=== PATIENT | female | born 1965 | race Caucasian/White ===

== ENCOUNTER 2016-05-23 15:11 | Emergency (ER) | payer BC, OTHER ==
[2016-05-23] MEDS ORDERED: SODIUM CHLORIDE 0.9% 500 ML IV STA (15:38)
[2016-05-23] MEDS ORDERED: LORazepam 2 MG/ML SYRINGE IV STA (15:39)
--- NOTE | 2016-05-23 15:45 | ED ---
General Adult HPI - General Chief complaint: Anxiety Stated complaint: anxiety attack Time Seen by Provider: 05/23/16 15:25 Source: patient, family, RN notes reviewed Mode of arrival: ambulatory Limitations: no limitations - History of Present Illness Initial comments: 50-year-old female presenting for possible medication reaction. Patient states that she was recently started on atenolol/chlorthalidone combination medication for hypertension and 05/09/2016. States since this time she's had a persistent feeling of cough as well as intermittent sensations of lip and throat swelling as well as swelling around her eyes. She states that she was reading the inserts on the medication and she had concerning symptoms for reaction to the medication. States she also has a history of anxiety and feels like she is having a full-blown panic attack right now. She did states that she took 1 of her Klonopin's prior to coming to the ED. She states that she is still feeling anxious at this time. She denies any active chest pain or shortness of breath. But she is worried that she is having a Heart attack as the insert in the medication and stated that if she abruptly stopped the medication she could have a heart attack. She denies any significant cardiac history. She denies any nausea or vomiting. She denies any fevers or chills. - Related Data Home Medications Medication Instructions Recorded Confirmed clonazePAM [Clonazepam] 0.5 mg PO BID PRN 03/29/14 05/23/16 Naproxen [Naprosyn] 500 mg PO Q12HR PRN 04/13/14 05/23/16 diphenhydrAMINE [Benadryl] 25 - 50 mg PO HS PRN 04/13/14 05/23/16 oxyCODONE HCL/ACETAMINOPHEN 1 tab PO TID PRN 04/30/15 05/23/16 [Endocet 10-325 mg] Baclofen [Lioresal] 20 mg PO BID PRN 05/23/16 05/23/16 Buprenorphine [Butrans 20 MCG/HOUR] 1 patch TRANSDERM FR 05/23/16 05/23/16 Allergies Allergy/AdvReac Type Severity Reaction Status Date / Time Latex, Natural Rubber AdvReac Unknown Itching Verified 05/23/16 15:48 Penicillins AdvReac Unknown HEADACHE Verified 05/23/16 15:48 enviromental AdvReac Mild HAYFEVER Uncoded 11/08/15 09:38 SYMPTOMS Review of Systems ROS Statement: Those systems with pertinent positive or pertinent negative responses have been documented in the HPI. ROS Other: All systems not noted in ROS Statement are negative. Past Medical History Past Medical History: GERD/Reflux, Musculoskeletal Disorder, Osteoarthritis (OA) Additional Past Medical History / Comment(s): Hx. of FREQUENT BLADDER INFECTIONS , BACK PAIN. Degenerative disc disorder. History of Any Multi-Drug Resistant Organisms: None Reported Past Surgical History: Back Surgery, Section, Orthopedic Surgery Additional Past Surgical History / Comment(s): 1/2 THYROID REMOVED FOR BENIGN CYST. ARTHROSCOPY LT KNEE, LAMINECTOMY, BACK SURGERY WITH RODS, SPINAL CORD STIMULATOR X 3, PAIN CLINIC INJECTIONS, Colonoscopy. Past Anesthesia/Blood Transfusion Reactions: No Reported Reaction Past Psychological History: Anxiety, Depression, Panic Disorder Smoking Status: Former smoker Past Alcohol Use History: None Reported Additional Past Alcohol Use History / Comment(s): Smoked 1/2 PPD x3 yrs. Quit smoking in 1994. Past Drug Use History: None Reported - Past Family History Mother Family Medical History: Cancer Additional Family Medical History / Comment(s): LUNG Sister(s) Family Medical History: Cancer Additional Family Medical History / Comment(s): LUNG General Exam - General Exam Comments Initial Comments: General: Awake and Alert. No acute distress. Does not appear acutely ill. Eyes: TANVIR, EOM intact. No nystagmus. No scleral icterus. HENT: Atraumatic, normocephalic. Mucous membranes moist. Trachea midline. Neck: The neck is supple, there is no tenderness or JVD. Cardiovascular: Regular rate and rhythm. No murmur, rub, or gallop is appreciated. Distal pulses intact. Respiratory: Lungs are clear to auscultation bilaterally. No wheezes, rales, rhonchi. No respiratory distress. Gastrointestinal: Soft, Nontender. No rebound or guarding. Non-distended. No masses or organomegaly noted. No CVA tenderness. Musculoskeletal: No tenderness. Normal ROM. No gross deformity. No strength deficits. Neurological: A&Ox3. CN II-XII grossly intact, There are no obvious motor or sensory deficits. Coordination appears grossly intact. Speech is normal. Skin: Skin is warm and dry and no rashes or lesions are noted. Psychiatric: Cooperative, appropriate mood & affect, normal judgment. She appears anxious. Limitations: no limitations Course Vital Signs 05/23/16 05/23/16 15:14 17:00 Temperature 98.0 F 97.8 F Pulse Rate 87 71 Respiratory 20 18 Rate Blood Pressure 114/75 108/61 O2 Sat by Pulse 97 96 Oximetry EKG Findings - EKG Comments: EKG Findings:: EKG 15:59. Normal sinus rhythm. Rate 70. MN 168. QRS 128. QT /QTc 42/434. Normal axis. LVH. No STEMI. Normal EKG. Medical Decision Making - Medical Decision Making 50-year-old female presenting for evaluation of possible medication reaction. Patient does not have any evidence of anaphylaxis or severe ALLERGIC reaction on physical exam at this time. She does state she is feeling very anxious, history of anxiety. Discussed discontinuation of her hypertension medication. Her vitals are stable at this time. She is not currently hypertensive. Patient states that she did call her doctor's office earlier today and is planning to get in for follow-up appointment early next week. Discussed that she is safe to stop her Atenolol/Chlorthalidone medication at this time. Discussed continuing her other medications. Patient was given IV fluids and Ativan for her anxiety. Basic blood work was done and grossly unremarkable other than mild hypokalemia which was replaced. Pt reevaluated and feeling improved. Discussed taking Benadryl if pt feels any return of symptoms. Patient is stable for discharge home at this time. Discussed concerning signs symptoms for immediate return to the ED. Patient and family are are agreeable with plan and discharge home. - Lab Data Result diagrams: 05/23/16 16:00 05/23/16 16:00 Lab Results 05/23/16 05/23/16 Range/Units 16:00 16:00 WBC 5.7 (3.8-10.6) k/uL RBC 4.88 (3.80-5.40) m/uL Hgb 12.5 (11.4-16.0) gm/dL Hct 38.2 (34.0-46.0) % MCV 78.3 L (80.0-100.0) fL MCH 25.5 (25.0-35.0) pg MCHC 32.6 (31.0-37.0) g/dL RDW 13.5 (11.5-15.5) % Plt Count 344 (150-450) k/uL Neutrophils % 69 % Lymphocytes % 20 % Monocytes % 6 % Eosinophils % 1 % Basophils % 1 % Neutrophils # 3.9 (1.3-7.7) k/uL Lymphocytes # 1.2 (1.0-4.8) k/uL Monocytes # 0.3 (0-1.0) k/uL Eosinophils # 0.1 (0-0.7) k/uL Basophils # 0.0 (0-0.2) k/uL Sodium 135 L (137-145) mmol/L Potassium 3.4 L (3.5-5.1) mmol/L Chloride 93 L (98-107) mmol/L Carbon Dioxide 29 (22-30) mmol/L Anion Gap 13 mmol/L BUN 13 (7-17) mg/dL Creatinine 0.96 (0.52-1.04) mg/dL Est GFR (MDRD) Af Amer >60 (>60 ml/min/1.73 sqM) Est GFR (MDRD) Non-Af >60 (>60 ml/min/1.73 sqM) Glucose 123 H (74-99) mg/dL Calcium 9.6 (8.4-10.2) mg/dL Disposition Clinical Impression: Medication reaction, Anxiety Disposition: HOME SELF-CARE Instructions: Generalized Anxiety Disorder (ED), Adverse Drug Reaction (ED) Additional Instructions: Please stop your Atenolol/Chlorthalidone medication. Please follow up with your regular doctor next week to discuss management of your blood pressure. Referrals: Deni Miranda DO [Primary Care Provider] - 1-2 days Time of Disposition: 17:07
[2016-05-23 16:23] LABS: Basophils % (A) 1 %; CH 25.6; CHCM 32.8; Eosinophils # (A) 0.1 k/uL (0-0.7); Eosinophils % (A) 1 %; HCT 38.2 % (34.0-46.0); HDW 2.75; HGB 12.5 gm/dL (11.4-16.0); Luc # (Auto) 0.17; Luc % (Auto) 3; Lymphocytes # (A) 1.2 k/uL (1.0-4.8); Lymphocytes % (A) 20 %; MCH 25.5 pg (25.0-35.0); MCHC 32.6 g/dL (31.0-37.0); MCV 78.3 fL (80.0-100.0); Mean Platelet Volume 6.9; Monocytes # (A) 0.3 k/uL (0-1.0); Monocytes % (A) 6 %; Neutrophils # (A) 3.9 k/uL (1.3-7.7); Neutrophils % (A) 69 %; RBC 4.88 m/uL (3.80-5.40); RDW 13.5 % (11.5-15.5); WBC 5.7 k/uL (3.8-10.6); WBC (Perox) 5.95
[2016-05-23 16:33] LABS: Anion Gap 13 mmol/L; Blood Urea Nitrogen 13 mg/dL (7-17); Calcium 9.6 mg/dL (8.4-10.2); Carbon Dioxide 29 mmol/L (22-30); Chloride 93 mmol/L (98-107); Glucose 123 mg/dL (74-99); Non-African American GFR(MDRD) >60 (>60 ml/min/1.73 sqM); Sodium 135 mmol/L (137-145)
[2016-05-23 16:34] LABS: Potassium 3.4 mmol/L (3.5-5.1)
[2016-05-23] MEDS ORDERED: POTASSIUM CHLORIDE ER 20 MEQ TAB.ER PO STA (16:56)
[2016-05-23 17:04] VITALS: BP 108/61; PULSE 71; RESP 18; TEMP 97.8
== END 2016-05-23 17:16 | disposition home or self-care (01) ==
LOC: EC 15:11
DX: T44.7X5A Adverse effect of beta-adrenoreceptor antagonists, initial encounter (principal); F41.9 Anxiety disorder, unspecified; E87.6 Hypokalemia; T78.49XA Other allergy, initial encounter; Z88.0 Allergy status to penicillin; Z87.891 Personal history of nicotine dependence; Z91.040 Latex allergy status; Z79.899 Other long term (current) drug therapy
CPT/HCPCS: 36415; 93005; 80048; 85025; 99283; 96374; 96361; J2060

== ENCOUNTER → 2016-06-10 | Outpatient (CLI) | payer BC ==
[2016-06-10 15:22] VITALS: BP 147/80; PULSE 106; RESP 18; TEMP 97.5
--- NOTE | 2016-06-11 08:42 | P.CONS ---
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 and she had also cervical radiculopathy , currently she is complaining of increase of her neck pain and numbness in the upper extremity, previously we have done cervical epidural steroid injection with excellent pain relief, and the last cervical epidural steroid injection done in October 2015, and she had good pain relief, patient was taking Butran 15 every week and, naproxen 500 mg every 12 hours, and baclofen 20 mg twice a day and Percocet 10/325 every 8 hours, patient reported that over the last several weeks she started having severe hives in her body every time she started a new Butrans patch, for this reason she stopped taking Butrans, for this reason her pain is increased, she denies any bowel or urinary incontinence , denies any fever or night sweats she denies any motor or sensory deficits Past Medical History Past Medical History: GERD/Reflux, Musculoskeletal Disorder, Osteoarthritis (OA) Additional Past Medical History / Comment(s): Hx. of FREQUENT BLADDER INFECTIONS , BACK PAIN. Degenerative disc disorder. History of Any Multi-Drug Resistant Organisms: None Reported Past Surgical History: Back Surgery, Section, Orthopedic Surgery Additional Past Surgical History / Comment(s): 1/2 THYROID REMOVED FOR BENIGN CYST. ARTHROSCOPY LT KNEE, LAMINECTOMY, BACK SURGERY WITH RODS, SPINAL CORD STIMULATOR X 3, PAIN CLINIC INJECTIONS, Colonoscopy. Past Anesthesia/Blood Transfusion Reactions: No Reported Reaction Past Psychological History: Anxiety, Depression, Panic Disorder Smoking Status: Former smoker Past Alcohol Use History: None Reported Additional Past Alcohol Use History / Comment(s): Smoked 1/2 PPD x3 yrs. Quit smoking in 1994. Past Drug Use History: None Reported - Past Family History Mother Family Medical History: Cancer Additional Family Medical History / Comment(s): LUNG Sister(s) Family Medical History: Cancer Additional Family Medical History / Comment(s): LUNG Medications and Allergies Home Medications Medication Instructions Recorded Confirmed Type clonazePAM [Clonazepam] 0.5 mg PO BID PRN 03/29/14 06/10/16 History Naproxen [Naprosyn] 500 mg PO Q12HR PRN 04/13/14 06/10/16 History diphenhydrAMINE [Benadryl] 25 - 50 mg PO HS PRN 04/13/14 06/10/16 History Baclofen [Lioresal] 20 mg PO BID PRN 05/23/16 06/10/16 History Buprenorphine [Butrans 20 MCG/HOUR] 1 patch TRANSDERM FR 05/23/16 06/10/16 History Cranberry Extract [Cranberry] 4,000 units PO BID 06/10/16 06/10/16 History Echinacea 3 tab PO DAILY 06/10/16 06/10/16 History Gabapentin [Neurontin] 100 mg PO TID 06/10/16 06/10/16 History Melatonin 1 tab PO HS PRN 06/10/16 06/10/16 History busPIRone HCl [Buspar] 1 tab PO BID 06/10/16 06/10/16 History Allergies Allergy/AdvReac Type Severity Reaction Status Date / Time Latex, Natural Rubber AdvReac Unknown Itching Verified 06/10/16 15:06 Penicillins AdvReac Unknown HEADACHE Verified 06/10/16 15:06 enviromental AdvReac Mild HAYFEVER Uncoded 06/10/16 15:06 SYMPTOMS Physical Exam Vitals: Vital Signs Temp Pulse Resp BP Pulse Ox 06/10/16 15:15 97.5 F L 106 H 18 147/80 99 Intake and Output 06/10/16 06/11/16 06/11/16 22:59 06:59 14:59 Other: Weight 83.007 kg Physical Examinations : 1-Constitutiona : Cooperative , not in acute distress . 2-HEENT : nech ; supple , no Lymphadenopathy , no Thyromegaly , normal thyroid size . eyes : no ptosis , no icterus, no photophobia . ENT : normal of hearing , normal oropharynx , no Thrush . 3- Respiratory : Chest clear to auscultations Bilaterally , no wheezing , no Rhonchi . 4- Cardiovascular : regular rate and rhythem , S1 , S2 , no S3 , no S4. 5- Gastrointestinal : abdomen soft no tenderness , bowel sounds positive all four quadrents , no organomegally . 6- Genitourinary : Defferred . 7- neurologic : Cranial nerve II to XII intact , no focal neurological deffecit . 8-psychatric : alert , oriented X 3 , appropriate affect , intact judgment and insight . 9-Lymphatic : no Lymphadenopathy . 10- musculoskeltal : exams of the cervical spine = normal motor stregnth in the deltoid and biceps, normal motor stregnth biceps and the wrist extensors (C6) normal motor stregnth in the triceps muscle . deep tendon reflexes normal at the biceps , , normal at triceps. positive cervical facet loading test . Decreased sensation in the medial aspect of the upper extremity mainly on the left side exams of the Lumber spine = normal moter stegnth lower extremities ,thigh and legs .5/5 deep tendon reflexes : normal Knee Jerk , normal ankle Jerk . positive lumber facet Loading Test strait leg raising test positive at 30 degree , RT ,LT , Fabere test positive RT and positive LT . Sever tenderness over the Sacroiliac joint on the Right , and Left side Assessment and Plan Plan: Assessment and plan = - Chronic low back pain secondary to lumbar degenerative disc disease , lumbar spondylosis with facet arthropathy without myelopathy , failed back surgery syndrome lumbar a -Cervical radiculopathy. Cervical spondylosis recommend = scheduled patient to have repeat cervical epidural steroid injection under fluoroscopy guidance, Discontinue butrans , start patient on Neurontin 100 mg every 8 hours. I'm recommend to increase the Percocet 10/325 every 6 hours (120 per months instead of 90 ) Time with Patient: Less than 30
--- NOTE | 2016-06-18 09:53 | P.PN ---
Progress Note - Text This is an addendum to the note dictated on 06/10/2016, patient had cervical epidural steroid injection x2 , the first cervical epidural was done in 2015 and she got 80% of pain relief, and also patient has second cervical epidural steroid injection done 11/08/2015 and she got 100% pain relief, and she is currently having pain ,she describes her pain as visual analog scale is 7 /10, patient continue conservative treatment ,with home exercise ,and medication , and the current conservative treatment is not helping enough, and she continued to, have pain in her neck and upper extremities, the pain interfering with her activity of daily livings
== END | disposition home or self-care (01) ==
LOC: PNWHC3 13:57
PROVIDERS: ATTEND Specialist
DX: M51.36 Other intervertebral disc degeneration, lumbar region (principal); M47.816 Spondylosis without myelopathy or radiculopathy, lumbar region; M47.22 Other spondylosis with radiculopathy, cervical region; M46.86 Other specified inflammatory spondylopathies, lumbar region; F32.9 Major depressive disorder, single episode, unspecified; F41.9 Anxiety disorder, unspecified; Z87.891 Personal history of nicotine dependence; Z79.899 Other long term (current) drug therapy; Z91.040 Latex allergy status; Z88.0 Allergy status to penicillin
CPT/HCPCS: 99211

== ENCOUNTER 2016-07-15 03:09 | Observation (INO) | payer BC ==
[2016-07-15] MEDS ORDERED: NITROGLYCERIN SL TABS 0.4 MG TAB SUBLINGUAL ONE (03:48)
[2016-07-15] MEDS ORDERED: ASPIRIN 81 MG CHEW ONE (03:48)
[2016-07-15] MEDS ORDERED: HEPARIN SODIUM,PORCINE 5,000 UNIT/ML 1 ML VIAL IV PRN (07:09)
[2016-07-15] MEDS ORDERED: HEPARIN SODIUM,PORCINE 5,000 UNIT/ML 1 ML VIAL IV ONE (07:09)
[2016-07-15] MEDS ORDERED: HEPARIN SODIUM,PORCINE/D5W PMX 25,000 UNIT in DEXTROSE/WATER 1 500ML.BAG IV SCH (07:15)
[2016-07-15 07:26] LABS: Basophils # (A) 0.1 k/uL (0-0.2); Basophils % (A) 1 %; CH 25.7; CHCM 31.8; Eosinophils # (A) 0.1 k/uL (0-0.7); Eosinophils % (A) 1 %; HCT 39.7 % (34.0-46.0); HDW 2.54; HGB 12.6 gm/dL (11.4-16.0); Luc # (Auto) 0.15; Luc % (Auto) 3; Lymphocytes # (A) 1.8 k/uL (1.0-4.8); Lymphocytes % (A) 34 %; MCH 25.8 pg (25.0-35.0); MCHC 31.8 g/dL (31.0-37.0); MCV 81.3 fL (80.0-100.0); Monocytes # (A) 0.3 k/uL (0-1.0); Monocytes % (A) 6 %; Neutrophils # (A) 2.8 k/uL (1.3-7.7); Neutrophils % (A) 54 %; RBC 4.89 m/uL (3.80-5.40); RDW 14.1 % (11.5-15.5); WBC 5.2 k/uL (3.8-10.6); WBC (Perox) 5.31
[2016-07-15 07:30] LABS: Partial Thromboplastin Time 23.1 sec (22.0-30.0); Prothrombin Time 10.2 sec (9.0-12.0)
[2016-07-15 07:32] LABS: ALT 29 U/L (9-52); AST 17 U/L (14-36); Alkaline Phosphatase 86 U/L (38-126); Anion Gap 11 mmol/L; Blood Urea Nitrogen 12 mg/dL (7-17); Carbon Dioxide 24 mmol/L (22-30); Chloride 103 mmol/L (98-107); Creatine Kinase 37 U/L (30-135); Creatine Kinase MB 0.3 ng/mL (0.0-2.4); Glucose 95 mg/dL (74-99); Non-African American GFR(MDRD) >60 (>60 ml/min/1.73 sqM); Potassium 4.1 mmol/L (3.5-5.1); Sodium 138 mmol/L (137-145); Total Bilirubin 0.4 mg/dL (0.2-1.3); Total Protein 7.9 g/dL (6.3-8.2); Troponin I <0.012 ng/mL (0.000-0.034)
--- NOTE | 2016-07-15 08:04 | XR ---
EXAMINATION TYPE: XR chest 2V DATE OF EXAM: 07/15/2016 7:45 AM COMPARISON: NONE HISTORY: Shortness of breath TECHNIQUE: Frontal and lateral views of the chest are obtained. FINDINGS: Scattered senescent parenchymal changes noted. Hyperinflation compatible with COPD. No evidence for infiltrate. No evidence for atelectasis. Heart size is stable. Mediastinal structures are stable and grossly unremarkable. No evidence for hilar prominence. Degenerative changes dorsal spine. IMPRESSION: 1. No evidence for acute pulmonary disease.
[2016-07-15] MEDS: NITROGLYCERIN SL TABS 0.4 MG TAB SUBLINGUAL PRN ×2 (08:26→21:23)
[2016-07-15] MEDS ORDERED: FLUTICASONE 50MCG/SPRAY NASAL 16GM EA NOSTRIL PRN (10:19)
[2016-07-15 10:46] LABS: Creatine Kinase 33 U/L (30-135)
[2016-07-15 10:58] LABS: Creatine Kinase MB <0.2 ng/mL (0.0-2.4); Troponin I <0.012 ng/mL (0.000-0.034)
[2016-07-15] MEDS: busPIRone HCl 10 MG TAB PO SCH ×2 (11:06→19:49)
[2016-07-15] MEDS: clonazePAM 0.5 MG TAB PO PRN ×2 (11:06→21:21)
[2016-07-15] MEDS: oxyCODONE-APAP 10-325MG 1 EACH TAB PO PRN ×4 (11:06→23:36)
--- NOTE | 2016-07-15 14:16 | P.PN ---
Progress Note - Text Patient presenting with atypical chest discomfort normal cardiac enzymes was noted that her blood pressure has been high for the last 6 months Blood pressure goes up to 150s systolic and 90s diastolic Suggest Secondary hypertension workup, lipid panel, TSH Start losartan 50 mg by mouth daily thereafter Outpatient workup thereafter Full dictation
[2016-07-15] MEDS: BACLOFEN 10 MG TAB PO SCH ×3 (15:25→19:48)
[2016-07-15 15:28] VITALS: BMI 28.3
[2016-07-15] MEDS: LOSARTAN 50 MG TAB PO SCH (16:08)
[2016-07-15 16:22] VITALS: RESP 16
[2016-07-15 16:53] LABS: Cholesterol 195 mg/dL (<200); HDL Cholesterol 57 mg/dL (40-60); Triglycerides 146 mg/dL (<150)
[2016-07-15 17:26] LABS: Creatine Kinase 37 U/L (30-135)
[2016-07-15 17:39] LABS: Creatine Kinase MB <0.2 ng/mL (0.0-2.4); Troponin I <0.012 ng/mL (0.000-0.034)
--- NOTE | 2016-07-15 19:55 | CONS ---
DATE OF CONSULTATION: Rosy Mccormack has been experiencing elevated blood pressure for the last 6 months. She came in because her blood pressure was high once again and she had some discomfort in the chest. Her blood pressure goes up to the 150s systolic and diastolics reached up to over 90 plus. She did try medication, but she does not remember the name of the medication; but I am not sure why she is not on it now. She denies any history of diabetes. She denies any history of dyslipidemia. PAST MEDICAL HISTORY: 1. Osteoarthritis. 2. GERD. 3. Frequent bladder infections. SOCIAL HISTORY: She is a former smoker. She stopped almost 20 years back. No alcohol use. REVIEW OF SYSTEMS: No fever, chills, rigors. No cough or expectoration. No nausea, vomiting or diarrhea. No hematuria or dysuria, strokes or seizures. No skin lesions. No musculoskeletal complaints. ALLERGIES: 1. LATEX. 2. PENICILLIN. Medication list was reviewed and is documented in the chart. On examination, blood pressure is 152/78 mmHg, pulse rate about 100 beats per minute. Afebrile; 97.8 degrees Fahrenheit. Normal respirations. Head and neck examination is normal. Heart sounds are normal. Lungs are clear on auscultation. Extremities are warm. No edema. IMPRESSION: 1. Symptomatic hypertension. She has been hypertensive for the last 6 months. 2. Patient denies a history of diabetes. Glucose is normal. 3. Cardiac enzymes are completely normal. 4. Mild dyslipidemia with an LDL of 109 mg/dL. HDL is 57. Total cholesterol 195. Triglycerides 146. 5. Second( ) SS. PLAN: 1. Workup for secondary hypertension. 2. Start losartan 50 mg p.o. daily. 3. Observe on telemetry. 4. Her kidney functions are normal. Liver functions are normal. Her CBC is normal. I will follow her up in the office subsequently.
[2016-07-16 07:39] LABS: Basophils # (A) 0.1 k/uL (0-0.2); Basophils % (A) 1 %; CH 25.7; CHCM 31.7; Eosinophils # (A) 0.1 k/uL (0-0.7); Eosinophils % (A) 1 %; HCT 38.9 % (34.0-46.0); HDW 2.59; HGB 12.3 gm/dL (11.4-16.0); Hypochromasia Slight; Luc # (Auto) 0.16; Luc % (Auto) 3; Lymphocytes # (A) 1.8 k/uL (1.0-4.8); Lymphocytes % (A) 36 %; MCH 25.8 pg (25.0-35.0); MCHC 31.7 g/dL (31.0-37.0); MCV 81.5 fL (80.0-100.0); Mean Platelet Volume 7.1; Monocytes # (A) 0.4 k/uL (0-1.0); Monocytes % (A) 8 %; Neutrophils # (A) 2.5 k/uL (1.3-7.7); Neutrophils % (A) 50 %; RBC 4.77 m/uL (3.80-5.40); RDW 13.9 % (11.5-15.5); WBC 4.9 k/uL (3.8-10.6); WBC (Perox) 4.57
[2016-07-16] MEDS: BACLOFEN 10 MG TAB PO SCH ×2 (07:52→12:00)
[2016-07-16] MEDS: busPIRone HCl 10 MG TAB PO SCH (07:52)
[2016-07-16] MEDS: oxyCODONE-APAP 10-325MG 1 EACH TAB PO PRN ×2 (07:53→12:00)
[2016-07-16] MEDS: LOSARTAN 50 MG TAB PO SCH (07:53)
[2016-07-16] MEDS: clonazePAM 0.5 MG TAB PO PRN (07:58)
--- NOTE | 2016-07-16 08:19 | HP ---
DATE OF ADMISSION: Chief complaint is chest pain. HISTORY OF ILLNESS: Ms. Mccormack is a 50-year-old female with a known history of hypertension and chronic back and multiple spine surgeries, came to the hospital with complaints of chest pain, mainly midsternal region and radiated to the left arm when she was at rest and which made her to go into a panic attack and nauseated and came to the hospital for further evaluation. The patient denied any complaints of headache or dizziness or lightheadedness, diaphoresis. No history of coronary artery disease in the past the patient. Apparently, patient has been having uncontrolled blood pressure for the past 6 months. Patient is on multiple pain medications and patient was also on Suboxone in the past which was removed 7 weeks ago. Since then, she has been having panic attacks with withdrawal symptoms. Patient's initial blood pressure when she came to the hospital was 151/88, pulse is 85, respirations 18, temperature afebrile, pulse ox 97% on room air on admission. Patient says her blood pressure is running in the 180s when she was at home. Patient's lab work was within normal limits and otherwise, the patient was initially started on heparin and saline and troponins were ordered which have been negative and heparin has been discontinued now. REVIEW OF SYSTEMS: CONSTITUTIONAL: No fever. No chills. RESPIRATORY: No cough or sputum production. CARDIOVASCULAR: No chest pain. No short of breath. No leg swelling. ABDOMEN: Patient does have trace edema on legs. No nausea, vomiting, abdominal pain. No diarrhea. GENITOURINARY: Negative. ENDOCRINE: Negative. PSYCHIATRIC: Anxious. All other 14-point review of systems negative except as above. PAST MEDICAL HISTORY: Hypertension, chronic back pain with multiple spinal surgeries, and chronic pain, GERD, osteoarthritis, frequent bladder infections, cervical back pain, numbness, tinging left buttock and left leg, eczema, degenerative disc disease. PAST SURGICAL HISTORY: Spinal surgery, fusion laminectomy, disc surgery, thyroid cyst removed, cervical neck surgery. , orthopedic surgery, left knee arthroscopy, laminectomy, fusion surgery, back surgery with rods, spinal custom later x3. Pain Clinic cervical injections and colonoscopy. FAMILY HISTORY: Diabetes mellitus in her grandmother and father had a CVA and aneurysm. Allergies INCLUDE LATEX, NATURAL RUBBER and PENICILLINS. PSYCHOSOCIAL HISTORY: Anxiety, depression and panic disorder. SOCIAL HISTORY: Patient is a former smoker, 1/2 pack per day for 3 years, quit in 1994. Denied any alcohol use. Denied any drugs or IVDU. FAMILY HISTORY: Mother of lung cancer. Home medication include: 1. Clonazepam. 2. Baclofen. 3. BuSpar. 4. Percocet 10. 5. Fluticasone nasal spray. PHYSICAL EXAMINATION: A 50-year-old female, lying in bed comfortably, awake, alert, and oriented x3. Appears to be in no apparent distress. VITALS: Blood pressure is 152/78, pulse is 104, respiration 18, temperature afebrile, pulse ox 97% on room air. HEENT: Atraumatic, normocephalic. Neck is supple. No JVD. CVS EXAM: S1, S2 heard. No murmurs, no gallop, no rub. LUNGS: Bilateral air entry is present. No rhonchi, no crackles. Abdomen is soft, nontender. Bowel sounds are heard. 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 No focal deficit. EXTREMITIES: Trace edema, pulses palpable bilaterally. No clubbing or cyanosis. PSYCHIATRIC: Cooperative. LABORATORY DATA: WBC is 5.2, hemoglobin 12.6, platelets 362, INR 1.0. Sodium 138, potassium 4.1, chloride 103, bicarb is 24. BUN 12, creatinine 0.9. Calcium 10.0, liver enzymes are not elevated. Troponin x3 negative. Albumin 4.3, the LDL is 109. Chest x-ray, no evidence for acute pulmonary disease. IMPRESSION: 1. Atypical chest pain, ruled out acute coronary syndrome. Serial EKGs and troponins are negative. 2. Uncontrolled hypertension. 3. Possible opiate withdrawal versus secondary hypertension, work-up in progress. 4. Gastroesophageal reflux disease. 5. Osteoarthritis. 6. Frequent urinary tract infection. 7. Chronic back and cervical pain and numbness, tingling of left buttock and leg. 8. Eczema. 9. Anxiety, depression and panic disorder. DISCUSSION AND PLAN: Patient says that she has been having uncontrolled hypertension for the past 6 months and patient was on Suboxone patch, which has been removed about 7 weeks. Since then patient is having a frequent anxiety attacks. ( ) plus rule out secondary hypertension. TSH and plasma catecholamines, ( ) have been ordered. Cardiology is following the patient. Continue with the losartan at this time and continue the pain management and DVT prophylaxis and follow up closely. Further recommendations based on the clinical course. Anticipate discharge tomorrow if the blood pressure is stable and follow up work-up for secondary hypertension as an outpatient.
--- NOTE | 2016-07-16 10:30 | PN ---
Rosy is doing well. Her blood pressure is much better controlled now. She came in with hypertension and elevated blood pressure. Her LDL is 109, will consult this later. Recent labs for work-up for secondary hypertension, start her on losartan and blood pressure now is in the normal range. She is walking around, ambulating in the hallways. Blood pressure 127/74 mmHg with normal respirations, heart rate in the 80s, afebrile 97.8 degrees Fahrenheit. Heart sounds S1, S2 normal. Breath sounds are normal. No rhonchi. No crackles. No rub, no gallop. No JVD. No lower extremity edema. Tolerating losartan. IMPRESSION: 1. Hypertension recently started on losartan 50 mg p.o. daily and blood pressure is well-controlled. 2. LDL of 109. 3. Chest discomfort associated with hypertension. Patient is pain-free at this time. Cardiac enzymes have been normal. SUGGEST: Patient may go for a cardiac standpoint. Follow up with Dr. Thomas in about 2 to 3 weeks and she will get me home blood pressure readings and will follow up secondary hypertension labs.
[2016-07-16 13:30] VITALS: BP 134/77; PULSE 83; TEMP 97.9
--- NOTE | 2016-07-17 05:21 | DS ---
DATE OF ADMISSION: 07/15/2016 DATE OF DISCHARGE: 07/16/2016 The patient is a 50-year-old female who came in with chest pain, appears to be musculoskeletal. The patient does have reproducible chest pain. Patient has minimally elevated blood pressure and Cardiology believes it is secondary to blood pressure. Blood pressure is not high enough to cause chest pain. Anyways Cardiology is recommending 50 mg of losartan. I am going to go ahead and give her 50 mg of Losartan, but extensive counseling regarding appropriate measuring blood pressure at home was provided and patient will be discharged today. The patient was seen and examined on the day of discharge. Vitals are stable. PHYSICAL EXAMINATION: GENERAL: The patient is alert and oriented x3, not in any acute distress. Well developed, well nourished. HEENT: Pupils are round and equally reacting to light. EOMI. No scleral icterus. No conjunctival pallor. Normocephalic, atraumatic. No pharyngeal erythema. No thyromegaly. CARDIOVASCULAR: S1 and S2 present. No murmurs, rubs, or gallops. PULMONARY: Chest is clear to auscultation, no wheezing or crackles. ABDOMEN: Soft, nontender, nondistended, normoactive bowel sounds. No palpable organomegaly. MUSCULOSKELETAL: No joint swelling or deformity. EXTREMITIES: No cyanosis, clubbing, or pedal edema. NEUROLOGICAL: Gross neurological examination did not reveal any focal deficits. SKIN: No rashes. FINAL DIAGNOSES: 1. Chest pain, atypical, musculoskeletal in nature. 2. Possibility of essential hypertension, which I do not believe his uncontrolled. 3. Gastroesophageal reflux disease. 4. Osteoarthritis. 5. Chronic low back pain and chronic neck pain. 6. Anxiety disorder. Patient will be discharged today in stable medical condition to home. Activity as tolerated. Cardiac diet. Please refer to my depart summary for details of discharge medications. Patient will follow up with her primary care physician, Dr. Deni Miranda in about 3 to 7 days and patient will follow with Dr. Deion Thomas on as-needed basis.
== END 2016-07-16 16:30 | disposition home or self-care (01) ==
LOC: EC 03:09 → UNDOADMOB 05:26 → 3OBS 05:26 → EC 07-16 16:49 → EDSTATUS 07-16 16:49
PROVIDERS: ADMIT Hospitalist; ATTEND Hospitalist
DX: R07.89 Other chest pain (principal); I10 Essential (primary) hypertension; M19.90 Unspecified osteoarthritis, unspecified site; K21.9 Gastro-esophageal reflux disease without esophagitis; E78.5 Hyperlipidemia, unspecified; Z87.440 Personal history of urinary (tract) infections; L30.9 Dermatitis, unspecified; G89.29 Other chronic pain; R20.0 Anesthesia of skin; M54.5 Low back pain; F41.0 Panic disorder [episodic paroxysmal anxiety]; F32.9 Major depressive disorder, single episode, unspecified; M50.30 Other cervical disc degeneration, unspecified cervical region; Z98.1 Arthrodesis status; Z83.3 Family history of diabetes mellitus; Z82.3 Family history of stroke; Z87.891 Personal history of nicotine dependence; Z80.1 Family history of malignant neoplasm of trachea, bronchus and lung
CPT/HCPCS: 96365; 96366 ×3; 96376; 99285; 93005; 83835; 80053; 80061; 82533; 82088; 82550; 82553; 84244; 84484; 85025 ×2; 85610; 85730; 71020; G0378 ×2; J1644

== ENCOUNTER → 2017-01-08 | Outpatient (CLI) | payer BC ==
--- NOTE | 2017-01-08 16:40 | XR ---
Left knee HISTORY: Pain and swelling 3 views of the left knee No comparisons Bone mineralization, joint spaces and alignment are maintained. No sizable joint effusion. Question s oft tissue swelling. IMPRESSION: No significant bone abnormality evident
== END ==
LOC: RADXRYALE 16:04
PROVIDERS: ATTEND Family Medicine
DX: M25.562 Pain in left knee (principal)

== ENCOUNTER → 2017-06-02 | Outpatient (CLI) | payer BC ==
[2017-06-02 13:33] VITALS: BP 118/71; PULSE 99; RESP 18; TEMP 97.5
--- NOTE | 2017-06-02 20:41 | P.PN ---
Subjective Progress Note Date: 06/02/17 This is 51 years female with a chronic history of severe low back pain, diagnosed with postlaminectomy pain syndrome patient had spinal cord stimulator implanted several years ago, to help her low back pain and lower extremity pain, , she reported that the efficacy of the stimulation in her low back area and the lower extremity decreased over the last couple of months, also patient had severe neck pain with radiation to the upper extremities she is diagnosed with cervical radiculopathy, and also she is complaining of severe mid back pain, patient had cervical epidural steroid injection done in the past with good result, patient denies any fever or night sweats she denies any motor or sensory deficit and she denies any change in the bowel movement or urination, she is using Percocet 10/325 every 6 hours, and baclofen twice a day, she denies any side effect of the medication she denies any excessive drowsiness or sleepiness and she reports the current medication helping to control her pain, and she is getting prescription refills from her primary care Objective - Vital Signs Vital signs: Vital Signs Temp 97.5 F L 06/02/17 13:18 Pulse 99 06/02/17 13:18 Resp 18 06/02/17 13:18 BP 118/71 06/02/17 13:18 Pulse Ox Intake & Output 06/02/17 06/02/17 06/03/17 06:59 18:59 06:59 Weight 79.379 kg - Exam Physical Examinations : 1-Constitutiona : Cooperative , not in acute distress . 2-HEENT : nech ; supple , no Lymphadenopathy , normal thyroid size . eyes : no ptosis , no icterus, no photophobia . ENT : normal of hearing , normal oropharynx , no Thrush . 3- Respiratory : Chest clear to auscultations Bilaterally , no wheezing , no Rhonchi . 4- Cardiovascular : regular rate and rhythem , S1 , S2 , no S3 , no S4. 5- Gastrointestinal : abdomen soft no tenderness , bowel sounds positive all four quadrents , no organomegally . 6- Genitourinary : Defferred . 7- neurologic : Cranial nerve II to XII intact , no focal neurological deffecit . 8-psychatric : alert , oriented X 3 , appropriate affect , intact judgment and insight . 9-Lymphatic : no Lymphadenopathy . 10- musculoskeltal : cervical spine = motor stregnth in the deltoid and biceps, motor stregnth biceps and the wrist extensors (C6) . motor stregnth in the triceps muscle . deep tendon reflexes normal at the biceps , normal at Brachioradialis , normal at the Triceps positive cervical facet loading test . Examination of the thoracic area= multiple trigger point identified in the thoracic paravertebral muscles Lumber spine = normal moter stegnth lower extremities ,thigh and legs .5/5 deep tendon reflexes : normal Knee Jerk , normal ankle Jerk . lumber facet Loading Test positive strait leg raising test positive at 30 degree Right , positve at 30 degree Left Fabere test positive Right and positive Left Assessment and Plan Plan: Assessment and plan=1-low back pain secondary to postlaminectomy pain syndrome, patient had a spinal cord stimulator implanted several years ago, and recently patient reported that she lost the efficacy of the stimulation in the low back area, for persistent patient could benefit from the complex programming of the spinal Coursen later which can be done in the near future, to optimize the quality of the stimulation. 2-cervical radiculopathy, he should continue benefit from cervical epidural steroid injections. 3-myofascial pain syndrome thoracic area, she could benefit from trigger point injection thoracic area. Patient currently getting prescription refill of her pain medication Percocet/baclofen from her primary care, he denies any side effects of the medication Time with Patient: Less than 30
== END | disposition home or self-care (01) ==
LOC: PNWHC3 13:00
PROVIDERS: ATTEND Specialist
DX: G89.29 Other chronic pain (principal); M54.5 Low back pain; M54.12 Radiculopathy, cervical region; M96.1 Postlaminectomy syndrome, not elsewhere classified; M79.1 Myalgia; Z96.89 Presence of other specified functional implants; Z79.891 Long term (current) use of opiate analgesic
CPT/HCPCS: 99211

== ENCOUNTER → 2017-07-01 | Outpatient (CLI) | payer BC ==
[2017-07-01 13:20] VITALS: BP 130/84; PULSE 106; RESP 18; TEMP 98.1
--- NOTE | 2017-07-01 13:47 | P.PN ---
Subjective Progress Note Date: 07/01/17 Principal diagnosis: Cervical radiculopathy, cervical myofascial pain syndrome She is a 51-year-old woman with a long-standing history of multiple pain problems. She has had a long-standing history of neck pain as well which she reports is worsening and radiating into her shoulders as well as her arms. She is undergone cervical epidural steroid injections in the past and these have been helpful for her. She denies any bowel or bladder dysfunction. Objective - Vital Signs Vital signs: Vital Signs Temp 98.1 F 07/01/17 13:05 Pulse 106 H 07/01/17 13:05 Resp 18 07/01/17 13:05 BP 130/84 07/01/17 13:05 Pulse Ox Intake & Output 06/30/17 07/01/17 07/01/17 18:59 06:59 18:59 Weight 83.007 kg - Exam Gen: WDWN, AAOx3, NAD HEENT: NCAT, EOMI, hearing grossly normal Pulm: resp unlabored Abd: soft, NT, ND Neck: supple, trachea midline ROM in flexion cervical spine: Decreased ROM in extension cervical spine: Decreased Cervical paravertebral tenderness: Increased on the left side of the cervical spine. Cervical Facet tenderness: Positive cervical facet loading Spurling's: Negative Neuro: CN II-XII grossly intact, patient has decreased strength with flexion and extension of the arms. Decreased range of motion with shoulder abduction and adduction. Reflexes are diminished but symmetric bilaterally the upper extremities. - Constitutional General appearance: Present: obese - EENT Eyes: Present: normal appearance ENT: Present: hearing grossly normal Assessment and Plan (1) Cervical herniated disc Current Visit: No Status: Chronic Code(s): M50.20 - OTHER CERVICAL DISC DISPLACEMENT, UNSP CERVICAL REGION SNOMED Code(s): 121229958 (2) Cervical radiculopathy Narrative/Plan: We will schedule the patient for cervical medical steroid injection at the C7- T1 interspace as well as trigger point injections into the left trapezius muscle Current Visit: No Status: Chronic Code(s): M54.12 - RADICULOPATHY, CERVICAL REGION SNOMED Code(s): 39215713
== END | disposition home or self-care (01) ==
LOC: PNWHC3 12:53
PROVIDERS: ATTEND Pain Medicine Pain Medicine
DX: M50.13 Cervical disc disorder with radiculopathy, cervicothoracic region (principal)
CPT/HCPCS: 99211

== ENCOUNTER → 2017-08-13 | Outpatient (CLI) | payer BC ==
[2017-08-13 13:22] VITALS: BP 117/82; PULSE 100; RESP 16
--- NOTE | 2017-08-13 13:35 | P.PN ---
Progress Note - Text Progress Note Date: 08/13/17 Ms. Mccormack is a 51-year-old female who returns for follow up for chronic low back and neck pain. She has a spinal cord stimulator which was revised in 2014 in her lumbar spine. Patient presents with chief complaint of neck pain, and is had cervical epidural steroid injections in the past that provided her with excellent relief greater than 80% for 6-8 weeks per injection. Patient states that her current pain is an 8 out of 10 in severity, describes it as sharp throbbing aching. States that pain radiates to her upper extremity's bilaterally into her hands. States that the radicular pain decreases her overall activities of daily living, states she is unable to do work around the house, perform simple daily tasks, and unable to work. I discussed with patient performing a series of cervical epidural steroid injections in addition to physical therapy in order to in prove her activities of daily living. If patient does not improve overall with epidural steroid injections and physical therapy will consider surgical consultation. Patient is being prescribed medication by her primary care physician. Patient denies any flaccid paralysis , bowel or bladder dysfunction. Gen: WDWN, AAOx3, NAD HEENT: NCAT, EOMI, hearing grossly normal Pulm: resp unlabored Abd: soft, NT, ND Neck: supple, trachea midline ROM in flexion cervical spine: limited by pain ROM in extension cervical spine: limited by pain Cervical paravertebral tenderness: bilateral, worse on L side Cervical Facet tenderness: bilateral Spurling's: + L side Primitive test: Negative Peace's, negative myoclonus ROM in flexion lumbar spine: reduced ROM in extension lumbar spine: reduced Lumbar paravertebral tenderness: bilateral Facet loading: bilateral SI joint: tenderness L side, nontender R side Neil's: + L side Neuro: muscle strength lower extremities preserved Imaging: MRI of C-spine unavailable Impression: 1. cervical radiculopathy 2. Cervical spondylosis without myelopathy 3.. lumbar spondylosis 4.. lumbar postlaminectomy syndrome 5. Sacroiliitis Plan: 1. Medication: Patient will continue to get prescribed her medication from her primary care doctor. 2. Investigation: Maps reviewed appropriate with patient history 3. Intervention: will schedule patient for cervical epidural steroid injection considering patient had significant relief with previous to. Patient has noted decreased overall activities of daily living and overall function. Cervical epidurals in the past have helped improve her daily function.
== END | disposition home or self-care (01) ==
LOC: PNWHC3 12:45
PROVIDERS: ATTEND Anesthesiology
DX: G89.29 Other chronic pain (principal); M54.9 Dorsalgia, unspecified; M47.22 Other spondylosis with radiculopathy, cervical region; M96.1 Postlaminectomy syndrome, not elsewhere classified; M46.1 Sacroiliitis, not elsewhere classified; M47.816 Spondylosis without myelopathy or radiculopathy, lumbar region
CPT/HCPCS: 99211

== ENCOUNTER 2017-09-03 07:03 | Day surgery (SDC) | payer BC ==
[2017-08-31 09:45] VITALS: BMI 28.1
[2017-09-03] MEDS ORDERED: LACTATED RINGERS 1,000 ML IV SCH (07:15)
[2017-09-03 07:38] VITALS: RESP 16; TEMP 96.1
[2017-09-03] MEDS ORDERED: LIDOCAINE 1% 20 ML VIAL (10MG/ML) FOR IV START INTRADERMA ONE (07:43)
--- NOTE | 2017-09-03 08:35 | P.PCN ---
Date of Procedure: 09/03/17 Surgeon: Bijan Sutton Description of Procedure: PREOPERATIVE DIAGNOSIS: Cervical radiculopathy Cervical degenerative disc disease POSTOPERATIVE DIAGNOSIS: Cervical radiculopathy Cervical degenerative disc disease PROCEDURE Cervical neural steroid injection under fluoroscopic guidance at the C7-T1 interspace. ANESTHESIA: Local with 1% lidocaine 3 ml and IV sedation with Versed 2 mg EBL: Minimal PROCEDURE INDICATION: This a very pleasant 51-year-old woman with a history of neck pain and arm pain who presents today for repeat cervical epidural steroid injection. She's received excellent relief of his seizures in the past. They reduced her pain by greater than 50%. She presents today for repeat of this to hopefully alleviate her symptoms. PROCEDURE DESCRIPTION / TECHNIQUE: The patient was seen and identified in the preoperative area. Risks, benefits , complications including but not limited to infections ,bleeding ,allergic reaction to the medications ,nerve damage and incomplete pain relief, and alternatives were discussed with the patient. The patient agreed to proceed with the procedure and signed the consent. IV was started, and vital signs were stable. Patient was taken to the OR and time out was completed. The patient was placed in the prone position on procedure table and a pillow was placed under the chest area.. The cervical area was prepped and draped in the usual sterile fashion. Conscious sedation was used during the procedure to decrease patient s anxiety. Vital signs was monitered during the entire procedure. Using anterior-posterior fluoroscopy, the C7-T1 interlaminar space was identified and the skin over this site was marked and then infiltrated with 1% lidocaine subcutaneously. Subsequently, a 20-gauge Tuohy epidural needle was inserted and advanced toward the epidural space using the loss of resistance technique and guided by AP and lateral fluoroscopy. The correct needle position in the epidural space was verified with the injection of contrast and observing epidural spread of the dye, after negative aspiration for blood and CSF and in the absence of paresthesias. Again after negative aspiration, a 4 ml mixture containing 20 mg of Dexamethasone was injected. Needle was withdrawn intact, skin was cleansed, and bandages were applied. COMPLICATIONS: None DISPOSITION / PLANS: The patient was placed in a supine position and transferred to the recovery area in a stable condition for observation. There was no evidence of lower extremity motor or sensory deficit after the procedure. Patient was discharged from the recovery room after meeting discharge criteria. Home discharge instructions were given to the patient by the staff. The patient was reexamined prior to discharge. The patient will schedule a follow up in the clinic in 2-4 weeks.
[2017-09-03 09:19] VITALS: BP 127/76; PULSE 70
[2017-09-03] MEDS ORDERED: IV FLUID CONTINUATION 1,000 ML IV ONE (09:20)
--- NOTE | 2017-09-03 10:33 | FL ---
Fluoroscopy HISTORY: Pain 2 seconds fluoroscopy time supplied to the referring clinician. 1 intraoperative C-arm images docume nt the procedure. See dictated report from anesthesia.
== END 2017-09-03 09:28 | disposition home or self-care (01) ==
LOC: ORPAIN 07:03
PROVIDERS: ATTEND Pain Medicine Pain Medicine
DX: M50.10 Cervical disc disorder with radiculopathy, unspecified cervical region (principal); I10 Essential (primary) hypertension; Z88.0 Allergy status to penicillin; Z98.1 Arthrodesis status
CPT/HCPCS: 62321; J2250; J1030

== ENCOUNTER → 2017-09-28 | Outpatient (CLI) | payer BC ==
--- NOTE | 2017-09-30 12:49 | MM ---
Reason for exam: screening (asymptomatic). Baseline mammogram. History: Patient is postmenopausal and had first child at age 32. Took hormonal contraceptives for 5 years. Physical Findings: Nurse did not find any significant physical abnormalities on exam. MG Screening Mammo w CAD Bilateral CC and MLO view(s) were taken. The breast tissue is heterogeneously dense. This may lower the sensitivity of mammography. Finding: There is a 6 mm circumscribed oval mass in the outer quadrant, anterior position of the right breast. Asymmetric breast tissue right inner quadrant. These results were verbally communicated with the patient and result sheet given to the patient on 09/28/17. ASSESSMENT: Incomplete: need additional imaging evaluation, BI-RAD 0 RECOMMENDATION: Special view mammogram of the right breast. If lesion persists on supplemental views, image directed ultrasound is recommended. [facility] will attempt to contact patient to return for supplemental views and ultrasound if indicated.
--- NOTE | 2017-09-30 12:51 | MM ---
Reason for exam: additional evaluation requested from abnormal screening. History: Patient is postmenopausal and had first child at age 32. Took hormonal contraceptives for 5 years. Physical Findings: Breast exam preformed at baseline screening. MG Work Up Mamm w CAD RT LM and spot compression CC view(s) were taken of the right breast. Finding: There is a 6 mm circumscribed round mass in the outer quadrant, anterior position of the right breast persists on additional views. These results were verbally communicated with the patient and result sheet given to the patient on 09/28/17. ASSESSMENT: Incomplete: need additional imaging evaluation, BI-RAD 0 RECOMMENDATION: Ultrasound of the right breast.
--- NOTE | 2017-09-30 12:53 | USB ---
Reason for exam: additional evaluation requested from abnormal screening. History: Patient is postmenopausal and had first child at age 32. Took hormonal contraceptives for 5 years. US Breast Workup Limited RT Right limited breast ultrasound including focal area of concern, retroareolar and axilla demonstrates a 0.5 x 0.4 x 0.5cm cystic lesion at 8 o'clock, a 0.7 x 0.4 x 0.5cm cystic cluster at 9 o'clock and a 0.7 x 0.5 x 0.8cm cystic cluster at 9 o'clock. These results were verbally communicated with the patient and result sheet given to the patient on 09/28/17. ASSESSMENT: Probably benign, BI-RAD 3 RECOMMENDATION: Follow-up diagnostic mammogram and ultrasound of the right breast in 6 months.
== END | disposition home or self-care (01) ==
LOC: RADMAMWWP 11:03
PROVIDERS: ATTEND Family Medicine
DX: Z12.31 Encounter for screening mammogram for malignant neoplasm of breast (principal); R92.8 Other abnormal and inconclusive findings on diagnostic imaging of breast
CPT/HCPCS: 77065; 77067

== ENCOUNTER → 2018-02-02 | Outpatient (CLI) | payer SELFPAY ==
--- NOTE | 2018-02-02 09:23 | XR ---
EXAMINATION TYPE: XR knee 4V LT DATE OF EXAM: 02/02/2018 COMPARISON: NONE HISTORY: Pain TECHNIQUE: Four views are submitted. FINDINGS: Joint spaces are preserved. Osseous structures are intact. No acute fracture seen. Diffuse osteope yasmany noted. IMPRESSION: 1. No acute fracture or dislocation.
== END | disposition home or self-care (01) ==
LOC: RADXRYALE 08:37
PROVIDERS: ATTEND Family Medicine
DX: M25.562 Pain in left knee (principal)

== ENCOUNTER → 2018-09-09 | Outpatient (CLI) | payer OTHER ==
--- NOTE | 2018-09-09 09:15 | US ---
EXAMINATION TYPE: US transvaginal DATE OF EXAM: 09/09/2018 COMPARISON: NONE CLINICAL HISTORY: M54.4 Low back pain, N30.21 Other chronic cystitis, pelvic pain TECHNIQUE: Transvaginal (TV). Date of LMP: 1 year prior EXAM MEASUREMENTS: Uterus: 5.3 x 2.6 x 3.3 cm Endometrial Stripe: 0.4 cm Right Ovary: obscured by bowel gas/atrophy Left Ovary: obscured by bowel gas/atrophy 1. Uterus: Anteverted 2. Endometrium: wnl 3. Right Ovary: Obscured by overlying bowel gas 4. Left Ovary: Obscured by overlying bowel gas 5. Bilateral Adnexa: wnl 6. Posterior cul-de-sac: wnl IMPRESSION: The bilateral ovaries are obscured by bowel gas. Uterus and endometrium are within normal limits.
--- NOTE | 2018-09-09 09:31 | US ---
EXAMINATION TYPE: US abdomen complete DATE OF EXAM: 09/09/2018 COMPARISON: NONE CLINICAL HISTORY: M54.4 Low back pain, N30.21 Other chronic cystitis. EXAM MEASUREMENTS: Liver Length: 13.8 cm Gallbladder Wall: 0.2 cm CBD: 0.1 cm Spleen: 9.3 cm Right Kidney: 9.3 x 4.3 x 4.4 cm Left Kidney: 9.5 x 4.7 x 4.4 cm Severe overlying bowel gas, large body habitus, technically difficult and somewhat limited study. Pancreas: Partially obscured by overlying bowel gas, portions visualized wnl Liver: wnl Gallbladder: wnl Evidence for sonographic Akhtar's sign: no CBD: wnl Spleen: wnl Right Kidney: No hydronephrosis or masses seen, portions of upper and lower pole obscured by bowel g as Left Kidney: No hydronephrosis or masses seen Upper IVC: wnl Abd Aorta: bifurcation obscured by overlying bowel gas, portion of upper aorta obscured The liver is homogenous. The intrahepatic portion of the IVC and proximal abdominal aorta are within normal limits. There is no evidence of cholelithiasis. Common bile duct is unremarkable. The visu alized portions of the pancreas are homogenous. The spleen is unremarkable. Kidneys are symmetric a nd free of hydronephrosis. No renal lesions are seen. IMPRESSION: 1. No hydronephrosis in patient with known cystitis. 2. No sonographic evidence of cholelithiasis nor acute cholecystitis. 3. Partial obscuration of the upper abdominal aorta, upper and lower pole the right kidney, and pancr eas due to patient body habitus and overlying bowel gas.
== END | disposition home or self-care (01) ==
LOC: RADUSWWP 07:26
PROVIDERS: ATTEND Family Medicine
DX: R10.2 Pelvic and perineal pain (principal); M54.5 Low back pain; N30.21 Other chronic cystitis with hematuria
CPT/HCPCS: 76700; 76830

== ENCOUNTER → 2019-01-21 | Outpatient (CLI) | payer OTHER ==
--- NOTE | 2019-01-21 17:00 | US ---
EXAMINATION TYPE: US venous doppler duplex LE LT DATE OF EXAM: 01/21/2019 3:38 PM COMPARISON: NONE CLINICAL HISTORY: L Leg, I80.9 Phelbitis and thrombophlebitis. Edema SIDE PERFORMED: Left TECHNIQUE: The lower extremity deep venous system is examined utilizing real time linear array sonog steph with graded compression, doppler sonography and color-flow sonography. VESSELS IMAGED: External Iliac Vein (EIV) Common Femoral Vein Deep Femoral Vein Greater Saphenous Vein * Femoral Vein Popliteal Vein Small Saphenous Vein * Proximal Calf Veins (* superficial vessels Left Leg: Negative for DVT There is normal flow, compressibility, vascular waveforms. IMPRESSION: No evident deep venous arthrosis at or above the left knee
== END | disposition home or self-care (01) ==
LOC: RADUSWWP 15:01
PROVIDERS: ATTEND Orthopaedic Surgery
DX: M25.562 Pain in left knee (principal); I80.9 Phlebitis and thrombophlebitis of unspecified site; M23.322 Other meniscus derangements, posterior horn of medial meniscus, left knee; M23.252 Derangement of posterior horn of lateral meniscus due to old tear or injury, left knee; M76.32 Iliotibial band syndrome, left leg; M17.12 Unilateral primary osteoarthritis, left knee; Z87.891 Personal history of nicotine dependence

== ENCOUNTER 2019-03-25 09:00 | Day surgery (SDC) | payer MEDICARE, OTHER ==
[2019-03-22 16:17] VITALS: BMI 28.1
[~2019-03-25 09:00] MED LIST: LIDOCAINE 1% 20 ML VIAL (10MG/ML) FOR IV START INTRADERMA PRN
[2019-03-25 09:33] VITALS: TEMP 97
[2019-03-25] MEDS: LACTATED RINGERS 1,000 ML IV SCH ×2 (09:41→10:01)
[2019-03-25] MEDS ORDERED: PROPOFOL 10 MG/ML 20 ML VIAL IV ONE (10:02)
--- NOTE | 2019-03-25 10:25 | P.PCN ---
Date of Procedure: 03/25/19 Procedure(s) Performed: BRIEF HISTORY: Patient is a [53year-old pleasant white female scheduled for an elective colonoscopy as a part of screening for colorectal neoplasia. PROCEDURE PERFORMED: Colonoscopy with biopsy PREOPERATIVE DIAGNOSIS: screening for colon cancer. IV sedation per Anesthesia. PROCEDURE: After informed consent was obtained, the patient, was brought into the endoscopy unit. IV sedation was administered by Anesthesia under continuous monitoring. Digital rectal examination was normal. Initially the Olympus CF-160 flexible video colonoscope was then inserted in the rectum, gradually advanced into the cecum without any difficulty. Careful examination was performed as the scope was gradually being withdrawn. Ileocecal valve and the appendiceal orifice were visualized and appeared normal. Prep was excellent. Mucosa of the cecum, ascending colon, transverse colon, descending colon, sigmoid colon, and rectum appeared normal.in the proximal rectum there was a 2-3 mm polyp that was removed by cold biopsy Retroflexion was performed in the rectum and no lesions were seen. The patient tolerated the procedure well. IMPRESSION: 2 mm proximal rectal polyp status post removal by cold biopsy Rest of the colon appeared normal . RECOMMENDATIONS: Findings of this examination were discussed with the patient as well as a family. She was advised to follow with the biopsy results. If the biopsy shows an adenoma she can have a repeat colonoscopy in 5 years
[2019-03-25 10:52] VITALS: BP 140/73; PULSE 85; RESP 16
== END 2019-03-25 11:10 | disposition home or self-care (01) ==
LOC: ORWHC2ENDO 09:00
PROVIDERS: ATTEND Internal Medicine Gastroenterology
DX: Z12.11 Encounter for screening for malignant neoplasm of colon (principal); D12.8 Benign neoplasm of rectum; I10 Essential (primary) hypertension; K21.9 Gastro-esophageal reflux disease without esophagitis; M19.90 Unspecified osteoarthritis, unspecified site; Z79.899 Other long term (current) drug therapy; Z88.0 Allergy status to penicillin; Z91.040 Latex allergy status; Z79.891 Long term (current) use of opiate analgesic; Z79.1 Long term (current) use of non-steroidal anti-inflammatories (NSAID)
CPT/HCPCS: 88305; 45380; J2704

== ENCOUNTER → 2020-01-18 | Outpatient (CLI) | payer OTHER ==
--- NOTE | 2020-01-19 09:28 | MM ---
Reason for exam: screening (asymptomatic). Last mammogram was performed 2 years and 4 months ago. History: Patient is postmenopausal and had first child at age 32. Took hormonal contraceptives for 5 years. Physical Findings: A clinical breast exam by your physician is recommended on an annual basis and results should be correlated with mammographic findings. MG Screening Mammo w CAD Bilateral CC and MLO view(s) were taken. Prior study comparison: September 28, 2017, right breast MG work up mamm w CAD RT. September 28, 2017, bilateral MG screening mammo w CAD. The breast tissue is heterogeneously dense. This may lower the sensitivity of mammography. No significant changes when compared with prior studies. ASSESSMENT: Benign, BI-RAD 2 RECOMMENDATION: Routine screening mammogram of both breasts in 1 year.
== END | disposition home or self-care (01) ==
LOC: RADMAMWWP 15:58
PROVIDERS: ATTEND Family Medicine
DX: Z12.31 Encounter for screening mammogram for malignant neoplasm of breast (principal)
CPT/HCPCS: 77067

== ENCOUNTER → 2020-03-07 | Outpatient (CLI) | payer OTHER ==
--- NOTE | 2020-03-07 21:11 | CT ---
EXAMINATION TYPE: CT abdomen pelvis w con DATE OF EXAM: 03/07/2020 COMPARISON: None INDICATION: Left upper quadrant pain. Indigestion, gas. DLP: 783.5 mGycm, Automated exposure control for dose reduction was used. CONTRAST: 100 mL of Isovue 300. Study performed with Oral Contrast TECHNIQUE: Axial images were obtained from above the diaphragm to the pubic rami in the axial plane a t 5 mm thick sections. Reconstructed images are reviewed on the computer in the coronal plane. FINDINGS: Limited CT sections are obtained the lung bases. The lung bases are clear. CT ABDOMEN: Liver: Normal Spleen: Normal Pancreas: Normal Adrenal glands: The adrenal glands are normal. Gallbladder: Normal Kidneys: No masses are evident. No hydronephrosis is present. No cysts are present. Delayed images were obtained through the kidneys, which remain unremarkable. Aorta: Normal Inferior vena cava: Normal. CT PELVIS: There appears to be a persistent apple core lesion within the right upper quadrant hepatic flexure on both early and delayed images an additional area of thickening within the ascending colon may be pre sent. Series 3 image 36. Additional workup of the colon is recommended. There are loops of bowel whic h are incompletely distended or lack oral contrast limiting their evaluation. Appendix: Normal as visualized. Urinary bladder: Normal. Genitourinary structures: Uterus is normal. Adnexal regions are clear. Osseous structures: No suspicious lytic or sclerotic lesions. IMPRESSIONS: 1. Suspicious apple core type lesion within the distal ascending colon at the hepatic flexure. Possi ble additional area of thickening is in the ascending colon. Additional workup of the colon is recomm ended. A Yellow level critical message alert has been initiated for Deni Miranda DO via the [email or web address] Critical Results System on 03/07/2020 9:07 PM. This message alert has been sent to Deni quesada DO via the preferences provided by the clinician for the receipt of Radiology Critical Findings. Message ID [id number].
== END | disposition home or self-care (01) ==
LOC: RADCTMAIN 14:02
PROVIDERS: ATTEND Family Medicine
DX: R10.812 Left upper quadrant abdominal tenderness (principal); R10.814 Left lower quadrant abdominal tenderness
CPT/HCPCS: 74177; Q9967 ×2

== ENCOUNTER 2020-03-16 11:28 | Day surgery (SDC) | payer OTHER ==
[2020-03-14 11:00] VITALS: BMI 29.0
[~2020-03-16 11:28] MED LIST changes: +LACTATED RINGERS 1,000 ML IV SCH; -LIDOCAINE 1% 20 ML VIAL (10MG/ML) FOR IV START INTRADERMA PRN
[2020-03-16 12:00] VITALS: TEMP 97.1
[2020-03-16] MEDS ORDERED: LIDOCAINE 1% INJ 10MG/ML (20 ML MDV) ONE (12:09)
[2020-03-16] MEDS ORDERED: PROPOFOL 10 MG/ML 20 ML VIAL IV ONE (12:09)
--- NOTE | 2020-03-16 12:37 | P.PCN ---
Date of Procedure: 03/16/20 Procedure(s) Performed: Brief history: Patient is a pleasant scheduled for an elective upper endoscopy as well as colonoscopy as a part of evaluation of epigastric pain/of left upper quadrant abdominal pain and abnormal CAT scan of abdomen that showed thickening of the ascending colon and the hepatic flexure suspicious for colonic lesion. She has been having intermittent left upper quadrant abdominal pain for the last 6 months duration. Procedure performed: Esophagogastroduodenoscopy biopsy Colonoscopy Preoperative diagnosis: Epigastric and left upper quadrant abdominal pain Abdominal CAT scan showing thickening of the right colon the hepatic flexure, rule out neoplasm Anesthesia: [facility] Procedure: After informed consent was obtained from the patient was brought into the endoscopy unit and IV sedation was administered by anesthesia under continuous monitoring. Initially upper endoscopy was done. The Olympus GF 160 video endoscope was inserted inserted into the mouth and esophagus intubated without any difficulty and was gradually advanced into the stomach and duodenum and carefully examined. The bulb and second part of the duodenum appeared normal. Abscesses were done from the duodenum to rule out celiac disease. The scope was then withdrawn into the stomach adequately insufflated with air and upon careful examination the antrum had scattered erosions and biopsies were done from this area. The body, cardia and fundus appeared normal. The scope was then withdrawn into the esophagus. The GE junction was located at 40 cm to the incisors. It appeared regular with no erythema erosions or ulcerations. Rest of the esophagus appeared normal. Patient tolerated the procedure well. At this time the patient continued to remain sedation. Initial digital rectal examination was normal. Olympus CF 160 video colonoscope was then inserted into the rectum and gradually advanced to the cecum without any difficulty. Careful examination was performed as the scope was gradually being withdrawn. The prep was excellent. The cecum, ascending colon, transverse colon, descending colon, sigmoid colon and rectum appeared normal. Retroflexion was performed in the rectum and no lesions were noted. Patient tolerated the procedure well. Impression: 1. Upper Endoscopy revealed mild antral gastritis but no evidence of esophagitis or peptic ulcer disease 2. Colonoscopy was essentially within normal limits with no evidence of colitis or colorectal neoplasia Recommendations: Findings of this examination were discussed with the patient as well as a family. She was advised to follow with the biopsy results. She will be given a trial of Prilosec 20 mg daily to be taken half hour before breakfast and follow antireflux measures. She can have a repeat colonoscopy in 5 years from now because of the prior history of colon polyps.
[2020-03-16 12:53] VITALS: BP 134/68; PULSE 68; RESP 17
== END 2020-03-16 13:41 | disposition home or self-care (01) ==
LOC: ORWHC2ENDO 11:28
PROVIDERS: ATTEND Internal Medicine Gastroenterology
DX: K29.50 Unspecified chronic gastritis without bleeding (principal); K08.89 Other specified disorders of teeth and supporting structures; J45.909 Unspecified asthma, uncomplicated; F41.9 Anxiety disorder, unspecified; M19.90 Unspecified osteoarthritis, unspecified site; K21.9 Gastro-esophageal reflux disease without esophagitis; Z86.010 Personal history of colon polyps; Z88.0 Allergy status to penicillin; Z91.040 Latex allergy status; Z79.899 Other long term (current) drug therapy; Z79.1 Long term (current) use of non-steroidal anti-inflammatories (NSAID); Z79.891 Long term (current) use of opiate analgesic
CPT/HCPCS: 88305; 45378; 43239; J2001; J2704

== ENCOUNTER → 2020-11-27 | Outpatient (CLI) | payer OTHER ==
--- NOTE | 2020-11-27 10:07 | US ---
EXAMINATION TYPE: US kidneys/renal and bladder DATE OF EXAM: 11/27/2020 COMPARISON: CT 03/07/2020 CLINICAL HISTORY: 55-year-old female R10.2 PELVIC AND PERINEAL PAIN, N18.30 KIDNEY DISEASE. Recurrent , UTI and renal infections per patient. TECHNIQUE: Multiple sonographic images of the kidneys and bladder are obtained. FINDINGS: EXAM MEASUREMENTS: Right Kidney: 9.47 x 4.6 x 3.8 cm Left Kidney: 9.9 x 4.7 x 4.4 cm No hydronephrosis on either side. Bladder: wnl Bilateral Jets seen: not seen after 3 minute observation Post Void Residual Volume: no residual volume seen Normal Post Void Residual: yes IMPRESSION: No hydronephrosis. No evidence for urinary retention.
== END | disposition home or self-care (01) ==
LOC: RADUSWWP 07:56
PROVIDERS: ATTEND Family Medicine
DX: N18.30 Chronic kidney disease, stage 3 unspecified (principal); N30.21 Other chronic cystitis with hematuria; R10.2 Pelvic and perineal pain
CPT/HCPCS: 76770

== ENCOUNTER → 2021-01-15 | Outpatient (CLI) | payer OTHER ==
--- NOTE | 2021-01-15 12:27 | XR ---
Right shoulder HISTORY: Pain, trauma 5 days prior 3 views of the right shoulder Marginal spurring is present at the glenohumeral joint. There is a distal acromial spur, distal acrom ion is down turn. Alignment and bone mineralization, joint spaces are maintained. There is a thoracic cord stimulator lead present. There are overlying artifacts. IMPRESSION: Osteoarthritis, correlate for impingement.
== END | disposition home or self-care (01) ==
LOC: RADXRYALE 10:58
PROVIDERS: ATTEND Family Medicine
DX: M19.011 Primary osteoarthritis, right shoulder (principal)

== ENCOUNTER → 2022-03-07 | Outpatient (CLI) | payer BC ==
--- NOTE | 2022-03-07 11:00 | XR ---
EXAMINATION TYPE: XR Hip Complete RT DATE OF EXAM: 03/07/2022 COMPARISON: NONE HISTORY: Pain TECHNIQUE: 2 views submitted FINDINGS: There is no evidence of erosive change or acute fracture. Stimulator device overlying the right hip. Postsurgical change of the lumbosacral junction. Diffuse osteopenia. Hip joint space is maintained. S omewhat lobulated margin can't be associated with IMPRESSION: 1. No evidence of acute fracture or dislocation. 2. Mild diffuse osteopenia. 3. Joint space of the right hip is maintained with no erosive changes. Somewhat lobulated margins of the femoral head can occasionally be associated with femoral acetabular impingement. Correlate clinic ally
== END | disposition home or self-care (01) ==
LOC: RADXRYALE 09:37
PROVIDERS: ATTEND Family Medicine
DX: M85.851 Other specified disorders of bone density and structure, right thigh (principal)
CPT/HCPCS: 73502

== ENCOUNTER → 2022-03-17 | Outpatient (CLI) | payer BC ==
--- NOTE | 2022-03-17 16:23 | XR ---
EXAM TYPE: LUMBAR SPINE X RAY SERIES COMPARISON: 08/11/2012 HISTORY: Pain TECHNIQUE: 4 views are submitted. FINDINGS: Alignment is anatomic. The pedicles are intact. The transverse processes are intact. There is no s pondylolysis or spondylolisthesis. Stimulator wires are seen projecting over the spine. Postsurgical changes L4-5 and L5-S1 are similar in appearance to prior exam. Multilevel mild degenerative disc di sease. IMPRESSION: 1. Postsurgical change appears similar to the prior exam.
--- NOTE | 2022-03-17 16:25 | XR ---
EXAMINATION TYPE: XR thoracic spine complete DATE OF EXAM: 03/17/2022 COMPARISON: NONE HISTORY: Pain TECHNIQUE: 3 views submitted FINDINGS: Alignment is anatomic. There is no compression deformities. Mild hypertrophic and degenerative disc disease involving the mid and lower thoracic spine. Curvature of the spine noted. Stimulator lead pro jecting over the thoracic spine. IMPRESSION: 1. Mild hypertrophic and degenerative disc disease.
== END | disposition home or self-care (01) ==
LOC: RADXRYALE 15:40
PROVIDERS: ATTEND Physician Assistant
DX: M51.34 Other intervertebral disc degeneration, thoracic region (principal); M89.48 Other hypertrophic osteoarthropathy, other site; M54.50 Low back pain, unspecified
CPT/HCPCS: 72072; 72110

== ENCOUNTER → 2022-06-25 | Outpatient (CLI) | payer BC ==
--- NOTE | 2022-06-26 08:55 | MM ---
Reason for Exam: Screening (asymptomatic). Last mammogram was performed 2 year(s) and 5 month(s) ago. Patient History: Menarche at age 12. First Full-Term at age 32. Late child-bearing (after 28). Postmenopausal. Patient has history of breast feeding. Patient used Hormonal Contraceptives for 5 years. Risk Values: Alexandra 5 year model risk: 1.7%. NCI Lifetime model risk: 9.6%. Prior Study Comparison: 09/28/2017 Bilateral Screening Mammogram, [facility]. 09/28/2017 Right Diagnostic Mammogram, [facility]. 01/18/2020 Bilateral Screening Mammogram, [facility]. Tissue Density: The breast tissue is heterogeneously dense. This may lower the sensitivity of mammography. Findings: Analyzed By CAD. There is no suspicious group of microcalcifications or new suspicious mass in either breast. Overall Assessment: Negative, BI-RAD 1 Management: Screening Mammogram of both breasts in 1 year. A clinical breast exam by your physician is recommended on an annual basis and results should be correlated with mammographic findings. Electronically signed and approved by: Dannie Bob M.D. Radiologis
--- NOTE | 2022-06-26 19:26 | BD ---
EXAMINATION TYPE: Axial Bone Density DATE OF EXAM: 06/25/2022 CLINICAL HISTORY: 56 years old Female. ICD-10 CODE: M85.80 Other Disorder of bone density Height: 66.4 in Weight: 185 lbs FRAX RISK QUESTIONS: History of Fracture in Adulthood: rt ribs age 28 RISK FACTORS HISTORY OF: History of Wrist Fracture: rt wrist age 15 Surgery to Spine: l spine age 22 Active: limited Diet low in dairy products/other sources of calcium: yes Postmenopausal woman: 54 Take estrogen and/or progesterone medications: not now How long: took control for 5 years Frequent falls: yes instability and pain MEDICATIONS: Additional Medications: calcium, vit d, pain meds, statin, trazodone, panic disorder meds EXAM MEASUREMENTS: Bone mineral densitometry was performed using the [employer] System. pt has had l-spine surgeries since age 22 Bone mineral density about the R hip (g/cm2): 0.819 Bone mineral density about the L hip (g/cm2): 0.813 T Score values are as follows: -----R Neck: -2.0 -----L Neck: -2.2 -----R Total: -1.5 -----L Total: -1.5 Z Score values are as follows: -----R Neck: -1.2 -----L Neck: -1.4 -----R Total: -1.1 -----L Total: -1.2 Bone mineral density baseline Bone mineral density about the L Wrist (g/cm2): 0.520 T Score values are as follows: -----Dist. R+U: -2.5 -----Prox. R+U: -1.8 -----Radius total: -2.6 Z Score values are as follows: -----Dist. R+U: -1.7 -----Prox. R+U: -1.0 -----Radius total: -1.8 Bone mineral density baseline FRAX%s: The graph provided illustrates a 16.4% chance for a major osteoporotic fx and a 2.5% chance f or the hips probability for fx in 10 years time. IMPRESSION: Osteopenia (T Score between -2.5 and -1). There is slightly increased risk of fracture and the patient may be considered for treatment. Re-Screen 2-5 years. NOTE: T-SCORE=SD OF THE YOUNG ADULT MEAN.
== END | disposition home or self-care (01) ==
LOC: RADMAMWWP 09:12
PROVIDERS: ATTEND Family Medicine
DX: Z12.31 Encounter for screening mammogram for malignant neoplasm of breast (principal); M81.0 Age-related osteoporosis without current pathological fracture; M85.89 Other specified disorders of bone density and structure, multiple sites; Z78.0 Asymptomatic menopausal state
CPT/HCPCS: 77063; 77067; 77080